=== PATIENT | female | born 1985 | race Caucasian/White ===

== ENCOUNTER 2018-10-07 13:45 | Outpatient (RCR) | payer OTHER, SELFPAY ==
--- NOTE | 2018-09-18 16:24 | PT.OIE ---
Current Diagnoses Other specified disorders of muscle (09/18/18) Stress incontinence (female) (male) (09/18/18) Provider Visit Care Team Role Provider Type Effie Gerber MD Attending Provider Physician Primary Care Provider Specialty: Family Practice Address: [address] [place] [address], [facility] Email: [email or web address] Physical Therapy Initial Evaluation PT-OP-A Visit Information Start: 09/18/18 09:05 Freq: Status: Active Protocol: Document 09/18/18 13:00 AMB (Rec: 09/18/18 15:05 AMB [email or web address]) Out-Patient Physical Therapy Visit Information Visit Information Visit Type Initial Evaluation Visit Start Time 13:00 Visit Stop Time 13:45 Total Visit Minutes 45 Visit Number 1 PT-OP-B Current Condition Start: 09/18/18 09:05 Freq: Status: Active Protocol: Document 09/18/18 13:00 AMB (Rec: 09/18/18 15:05 AMB [email or web address]) Current Condition History of Current Condition Onset Date 8 months ago Current Complaints vaginal bulge, stress incontinence, low back pain, abdominal pain History of Current Condition Lucero felt a bulge when she was sitting about 8 months ago. She has 4 children, the first via , the rest via vaginal delivery. She is 1 year and 1 month post and is breast feeding. She denies pain with intercourse but does have low back pain with extended lying down or standing, she also notices sharp electrical pain intermittently in her lower abdomen especially with exercise. She likes to do [employer] videos. She does have stress incontinence with exercise, but denies it with cough sneeze. Treatment Goals Patient/Caregiver Goals reduce prolapse Current Functional Impairments (Reported) Functional Limitations- ADL's leaking urine with exercise Personal Factors Other Personal Factors That May Effect back pain and abdominal pain Therapy/Recovery with exercise PT-OP-C Subjective Start: 09/18/18 09:05 Freq: Status: Active Protocol: Document 09/18/18 13:00 AMB (Rec: 09/18/18 15:05 AMB [email or web address]) Patient Questionnaires Pelvic Pain and Urgency/Frequency Patient Symptom Scale Pelvic Pain Score 10 PT-OP-I Pelvic Floor Start: 09/18/18 09:05 Freq: Status: Active Protocol: Document 09/18/18 13:00 AMB (Rec: 09/18/18 15:11 AMB [email or web address]) Pelvic Floor Assessment Urine Pelvic Floor Surgery No Urinary Symptoms Prolapse Falling Out Feeling/Heavy Pain Leakage Size Small Leakage Cause Exercise Voiding Frequency every 2 hours Nocturia 2 Bowel Other Bowel Symptoms previous constipation but changed diet and is now better Bowel Movement Frequency 1x/day Pelvic Clock Pelvic Clock Other no pain Prolapse Cystocele Grade 1 Perineal Descent Resting Absent Bearing Absent Contraction Ability Voluntary Contraction Absent Voluntary Relaxation Absent Manual Muscle Testing Left 0 Manual Muscle Testing Right 0 Manual Muscle Testing Anterior 0 Manual Muscle Testing Posterior 1 Comments Pelvic Floor Comments difficulty engaging pelvic floor, over uses abs, tends to bulge out with abs rather than engage TrA, small diastasis recti just superior to umbilicus less than 1 finger width. No tenderness over scar. PT-OP-Q Treatments Start: 09/18/18 09:05 Freq: Status: Active Protocol: Document 09/18/18 13:00 AMB (Rec: 09/18/18 15:11 AMB [email or web address]) Neuro Re-Education Treatment Other Activities 1 Details 10 second holds Comments with NMES PT-OP-T Assessment and Plan Start: 09/18/18 09:05 Freq: Status: Active Protocol: Document 09/18/18 13:00 AMB (Rec: 09/18/18 16:24 AMB [email or web address]) Physical Therapy Assessment Rehab Potential Rehabilitation Potential Good Evaluation Complexity Number of Personal Factors/Comorbidities 1-2 Clinical Presentation at Evaluation Stable Impairments Impairments Functional Activities Goals Three Impairment incontinence Straightedge Man Goal (LTG) Lucero will exercise without leaking urine. LTG Duration 10 weeks Two Impairment prolapse Short Term Goal (STG) Lucero will increase her pelvic floor strength to 3/5. STG Duration 4 weeks Straightedge Man Goal (LTG) Lucero will exercise without an increase in pelvic heaviness. LTG Duration 10 weeks One Impairment appropriate HEP Short Term Goal (STG) Lucero will be independent with a HEP that she can perform without abdominal pain. STG Duration 4 weeks Straightedge Man Goal (LTG) Lucero will be independent with a HEP that she can perform with appropriate pelvic floor contraction. LTG Duration 10 weeks Assessment Summary Assessment Lucero attends physical therapy with concerns over prolapse and pain and stress incontinence with exercise. It sounds like she is trying to start exercising to lose weight after and this is exacerbating her symptoms. While her prolapse was a grade 1 she had significant difficulty engaging her pelvic floor and tried to compensate with her abdominals. She did find NMES helpful. We will progress her as she is able to better recruit her pelvic floor and then further assess her pelvic floor's role with her abdominal pain and her back pain. Physical Therapy Plan Frequency and Duration Frequency of Treatment 1x/Week Duration of Treatment 10 weeks Plan of Care Start Date 09/18/18 Plan of Care End Date 11/27/18 Therapeutic Interventions Therapeutic Interventions Home Exercise Program Manual Therapy Neuromuscular Re-education Self-Care/Home Management Therapeutic Activities Therapeutic Exercises Modalities Biofeedback Electric Stimulation Next Visit Focus/Plan Next Note Type Treatment Note Next Visit Plan start with sEMG, instruct in appropriate pelvic floor and core stabilization
--- NOTE | 2018-09-18 16:25 | PT.OPPOC ---
Current Diagnoses Other specified disorders of muscle (09/18/18) Stress incontinence (female) (male) (09/18/18) Provider Visit Care Team Role Provider Type Effie Gerber MD Attending Provider Physician Primary Care Provider Specialty: Family Practice Address: [address] [place] [address], [id number] Email: [email or web address] Plan Of Care PT-OP-T Assessment and Plan Start: 09/18/18 09:05 Freq: Status: Active Protocol: Document 09/18/18 13:00 AMB (Rec: 09/18/18 16:24 AMB [email or web address]) Physical Therapy Assessment Rehab Potential Rehabilitation Potential Good Evaluation Complexity Number of Personal Factors/Comorbidities 1-2 Clinical Presentation at Evaluation Stable Impairments Impairments Functional Activities Goals Three Impairment incontinence Cost Control Supervisor Goal (LTG) Lucero will exercise without leaking urine. LTG Duration 10 weeks Two Impairment prolapse Short Term Goal (STG) Lucero will increase her pelvic floor strength to 3/5. STG Duration 4 weeks Snf Goal (LTG) Lucero will exercise without an increase in pelvic heaviness. LTG Duration 10 weeks One Impairment appropriate HEP Short Term Goal (STG) Lucero will be independent with a HEP that she can perform without abdominal pain. STG Duration 4 weeks Cost Control Supervisor Goal (LTG) Lucero will be independent with a HEP that she can perform with appropriate pelvic floor contraction. LTG Duration 10 weeks Assessment Summary Assessment Lucero attends physical therapy with concerns over prolapse and pain and stress incontinence with exercise. It sounds like she is trying to start exercising to lose weight after and this is exacerbating her symptoms. While her prolapse was a grade 1 she had significant difficulty engaging her pelvic floor and tried to compensate with her abdominals. She did find NMES helpful. We will progress her as she is able to better recurit her pelvic floor and then further assess her pelvic floor's role with her abdominal pain and her back pain. Physical Therapy Plan Frequency and Duration Frequency of Treatment 1x/Week Duration of Treatment 10 weeks Plan of Care Start Date 09/18/18 Plan of Care End Date 11/27/18 Therapeutic Interventions Therapeutic Interventions Home Exercise Program Manual Therapy Neuromuscular Re-education Self-Care/Home Management Therapeutic Activities Therapeutic Exercises Modalities Biofeedback Electric Stimulation Next Visit Focus/Plan Next Note Type Treatment Note Next Visit Plan start with sEMG, instruct in appropriate pelvic floor and core stabilization Plan of Care Dates Plan of Care Start Date 09/18/18 Plan of Care End Date 11/27/18 Please Sign and Return: I have reviewed this Plan of Care and certify that the skilled therapy services above are required to meet the patient?s needs. Physician Signature Date Printed Name and Credentials Clinical Instructor Signature Printed Name and Credentials
--- NOTE | 2018-09-23 15:56 | PT.OTN ---
Current Diagnoses Other specified disorders of muscle (09/23/18) Stress incontinence (female) (male) (09/23/18) Physical Therapy Treatment Note PT-OP-A Visit Information Start: 09/18/18 09:05 Freq: Status: Active Protocol: Document 09/23/18 14:30 AMB (Rec: 09/23/18 15:56 AMB [email or web address]) Out-Patient Physical Therapy Visit Information Visit Information Visit Type Initial Evaluation Visit Start Time 13:00 Visit Stop Time 13:45 Total Visit Minutes 45 Visit Number 2 PT-OP-B Current Condition Start: 09/18/18 09:05 Freq: Status: Active Protocol: Document 09/18/18 13:00 AMB (Rec: 09/18/18 15:05 AMB [email or web address]) Current Condition History of Current Condition Onset Date 8 months ago Current Complaints vaginal bulge, stress incontinence, low back pain, abdominal pain History of Current Condition Lucero felt a bulge when she was sitting about 8 months ago. She has 4 children, the first via , the rest via vaginal delivery. She is 1 year and 1 month post and is breast feeding. She denies pain with intercourse but does have low back pain with extended lying down or standing, she also notices sharp electrical pain intermittently in her lower abdomen especially with exercise. She likes to do [employer] videos. She does have stress incontinence with exercise, but denies it with cough sneeze. Treatment Goals Patient/Caregiver Goals reduce prolapse Current Functional Impairments (Reported) Functional Limitations- ADL's leaking urine with exercise Personal Factors Other Personal Factors That May Effect back pain and abdominal pain Therapy/Recovery with exercise PT-OP-C Subjective Start: 09/18/18 09:05 Freq: Status: Active Protocol: Document 09/23/18 14:30 AMB (Rec: 09/23/18 15:56 AMB [email or web address]) OP-PT Subjective Patient Comments Patient Comments Pt reports she thinks she is better able to find her pelvic floor. However finding time to lie down is challenging with her kids. PT-OP-I Pelvic Floor Start: 09/18/18 09:05 Freq: Status: Active Protocol: Document 09/18/18 13:00 AMB (Rec: 09/18/18 15:11 AMB [email or web address]) Pelvic Floor Assessment Urine Pelvic Floor Surgery No Urinary Symptoms Prolapse Falling Out Feeling/Heavy Pain Leakage Size Small Leakage Cause Exercise Voiding Frequency every 2 hours Nocturia 2 Bowel Other Bowel Symptoms previous constipation but changed diet and is now better Bowel Movement Frequency 1x/day Pelvic Clock Pelvic Clock Other no pain Prolapse Cystocele Grade 1 Perineal Descent Resting Absent Bearing Absent Contraction Ability Voluntary Contraction Absent Voluntary Relaxation Absent Manual Muscle Testing Left 0 Manual Muscle Testing Right 0 Manual Muscle Testing Anterior 0 Manual Muscle Testing Posterior 1 Comments Pelvic Floor Comments difficulty engaging pelvic floor, over uses abs, tends to bulge out with abs rather than engage TrA, small diastasis recti just superior to umbilicus less than 1 finger width. No tenderness over scar. PT-OP-Q Treatments Start: 09/18/18 09:05 Freq: Status: Active Protocol: Document 09/23/18 14:30 AMB (Rec: 09/23/18 15:56 AMB [email or web address]) Therapeutic Exercises Sitting Exercises 2 Sitting Exercise Name quick flicks and long holds Comments 10 1 Sitting Exercise Name roll out Resistance #2 t band Comments 10 Neuro Re-Education Treatment Other Activities 2 Details sEMG with quick flicks and long holds Self-Care/Home Management Treatment Education Other Education back pain and role of supported sitting, arch support for shoes PT-OP-T Assessment and Plan Start: 09/18/18 09:05 Freq: Status: Active Protocol: Document 09/23/18 14:30 AMB (Rec: 09/23/18 15:56 AMB [email or web address]) Physical Therapy Assessment Assessment Summary Assessment Lucero continues to note back pain. Difficulty coordinating breathing with pelvic floor today. Physical Therapy Plan Next Visit Focus/Plan Next Note Type Treatment Note Next Visit Plan start with sEMG, instruct in appropriate pelvic floor and core stabilization
--- NOTE | 2018-09-30 16:28 | PT.OTN ---
Current Diagnoses Other specified disorders of muscle (09/30/18) Stress incontinence (female) (male) (09/30/18) Physical Therapy Treatment Note PT-OP-A Visit Information Start: 09/18/18 09:05 Freq: Status: Active Protocol: Document 09/30/18 13:45 AMB (Rec: 09/30/18 16:28 AMB [email or web address]) Out-Patient Physical Therapy Visit Information Visit Information Visit Type Treatment Note Visit Start Time 13:00 Visit Stop Time 13:45 Total Visit Minutes 45 Visit Number 3 PT-OP-B Current Condition Start: 09/18/18 09:05 Freq: Status: Active Protocol: Document 09/18/18 13:00 AMB (Rec: 09/18/18 15:05 AMB [email or web address]) Current Condition History of Current Condition Onset Date 8 months ago Current Complaints vaginal bulge, stress incontinence, low back pain, abdominal pain History of Current Condition Lucero felt a bulge when she was sitting about 8 months ago. She has 4 children, the first via , the rest via vaginal delivery. She is 1 year and 1 month post and is breast feeding. She denies pain with intercourse but does have low back pain with extended lying down or standing, she also notices sharp electrical pain intermittently in her lower abdomen especially with exercise. She likes to do [employer] videos. She does have stress incontinence with exercise, but denies it with cough sneeze. Treatment Goals Patient/Caregiver Goals reduce prolapse Current Functional Impairments (Reported) Functional Limitations- ADL's leaking urine with exercise Personal Factors Other Personal Factors That May Effect back pain and abdominal pain Therapy/Recovery with exercise PT-OP-C Subjective Start: 09/18/18 09:05 Freq: Status: Active Protocol: Document 09/30/18 13:45 AMB (Rec: 09/30/18 16:28 AMB [email or web address]) OP-PT Subjective Patient Comments Patient Comments Pt feels like she is finding her pelvic floor better, her back pain continues to be a problem. PT-OP-I Pelvic Floor Start: 09/18/18 09:05 Freq: Status: Active Protocol: Document 09/18/18 13:00 AMB (Rec: 09/18/18 15:11 AMB [email or web address]) Pelvic Floor Assessment Urine Pelvic Floor Surgery No Urinary Symptoms Prolapse Falling Out Feeling/Heavy Pain Leakage Size Small Leakage Cause Exercise Voiding Frequency every 2 hours Nocturia 2 Bowel Other Bowel Symptoms previous constipation but changed diet and is now better Bowel Movement Frequency 1x/day Pelvic Clock Pelvic Clock Other no pain Prolapse Cystocele Grade 1 Perineal Descent Resting Absent Bearing Absent Contraction Ability Voluntary Contraction Absent Voluntary Relaxation Absent Manual Muscle Testing Left 0 Manual Muscle Testing Right 0 Manual Muscle Testing Anterior 0 Manual Muscle Testing Posterior 1 Comments Pelvic Floor Comments difficulty engaging pelvic floor, over uses abs, tends to bulge out with abs rather than engage TrA, small diastasis recti just superior to umbilicus less than 1 finger width. No tenderness over scar. PT-OP-Q Treatments Start: 09/18/18 09:05 Freq: Status: Active Protocol: Document 09/30/18 13:45 AMB (Rec: 09/30/18 16:28 AMB [email or web address]) Therapeutic Exercises Supine Exercises 2 Supine Exercise Name supine table top with eccentric lower Reps/Minutes 10 Comments with pelvic floor and TrA 1 Supine Exercise Name supine march with TrA and pelvic floor Reps/Minutes 10 Sitting Exercises 2 Sitting Exercise Name quick flicks and long holds Comments 10 1 Sitting Exercise Name roll out Resistance #2 t band Comments 10 Standing Exercises 1 Standing Exercise Name pelvic tilt with TA/pelvic floor Other Exercises 3 Other Exercise Name jorge pose Reps/Minutes 10 2 Other Exercise Name cat/cow Reps/Minutes 10 Comments with TrA pelvic floor 1 Other Exercise Name quadruped UE flex Reps/Minutes 10 Comments with TrA and pelvic floor PT-OP-T Assessment and Plan Start: 09/18/18 09:05 Freq: Status: Active Protocol: Document 09/30/18 13:45 AMB (Rec: 09/30/18 16:28 AMB [email or web address]) Physical Therapy Assessment Assessment Summary Assessment Lucero was better with breathing coordination today, but continues to have difficulty not letting abdominal muscles take over. She can feel the prolapse at the end of the day but not in the morning. Physical Therapy Plan Next Visit Focus/Plan Next Note Type Treatment Note Next Visit Plan start with sEMG, instruct in appropriate pelvic floor and core stabilization
--- NOTE | 2018-10-07 16:05 | PT.OTN ---
Current Diagnoses Other specified disorders of muscle (10/07/18) Stress incontinence (female) (male) (10/07/18) Physical Therapy Treatment Note PT-OP-A Visit Information Start: 09/18/18 09:05 Freq: Status: Active Protocol: Document 10/07/18 13:45 AMB (Rec: 10/07/18 15:36 AMB [email or web address]) Out-Patient Physical Therapy Visit Information Visit Information Visit Type Treatment Note Visit Start Time 13:00 Visit Stop Time 13:45 Total Visit Minutes 45 Visit Number 4 PT-OP-B Current Condition Start: 09/18/18 09:05 Freq: Status: Active Protocol: Document 09/18/18 13:00 AMB (Rec: 09/18/18 15:05 AMB [email or web address]) Current Condition History of Current Condition Onset Date 8 months ago Current Complaints vaginal bulge, stress incontinence, low back pain, abdominal pain History of Current Condition Lucero felt a bulge when she was sitting about 8 months ago. She has 4 children, the first via , the rest via vaginal delivery. She is 1 year and 1 month post and is breast feeding. She denies pain with intercourse but does have low back pain with extended lying down or standing, she also notices sharp electrical pain intermittently in her lower abdomen especially with exercise. She likes to do [email or web address] videos. She does have stress incontinence with exercise, but denies it with cough sneeze. Treatment Goals Patient/Caregiver Goals reduce prolapse Current Functional Impairments (Reported) Functional Limitations- ADL's leaking urine with exercise Personal Factors Other Personal Factors That May Effect back pain and abdominal pain Therapy/Recovery with exercise PT-OP-C Subjective Start: 09/18/18 09:05 Freq: Status: Active Protocol: Document 10/07/18 13:45 AMB (Rec: 10/07/18 15:36 AMB [email or web address]) OP-PT Subjective Patient Comments Patient Comments Pt continues to have thoracic back pain, she feels like she has found her pelvic floor, but continues to feel the prolapse at the end of the day. She is concerned about childcare, and her parents are going to be in town in a month, so she is hoping to cancel her last appointment and reschedule when her parents are in town and they can help with childcare. PT-OP-I Pelvic Floor Start: 09/18/18 09:05 Freq: Status: Active Protocol: Document 09/18/18 13:00 AMB (Rec: 09/18/18 15:11 AMB [email or web address]) Pelvic Floor Assessment Urine Pelvic Floor Surgery No Urinary Symptoms Prolapse Falling Out Feeling/Heavy Pain Leakage Size Small Leakage Cause Exercise Voiding Frequency every 2 hours Nocturia 2 Bowel Other Bowel Symptoms previous constipation but changed diet and is now better Bowel Movement Frequency 1x/day Pelvic Clock Pelvic Clock Other no pain Prolapse Cystocele Grade 1 Perineal Descent Resting Absent Bearing Absent Contraction Ability Voluntary Contraction Absent Voluntary Relaxation Absent Manual Muscle Testing Left 0 Manual Muscle Testing Right 0 Manual Muscle Testing Anterior 0 Manual Muscle Testing Posterior 1 Comments Pelvic Floor Comments difficulty engaging pelvic floor, over uses abs, tends to bulge out with abs rather than engage TrA, small diastasis recti just superior to umbilicus less than 1 finger width. No tenderness over scar. PT-OP-Q Treatments Start: 09/18/18 09:05 Freq: Status: Active Protocol: Document 10/07/18 13:45 AMB (Rec: 10/08/18 07:05 AMB [email or web address]) Therapeutic Exercises Supine Exercises 1 Supine Exercise Name supine march with TrA and pelvic floor Reps/Minutes 10 Standing Exercises 3 Standing Exercise Name rows Resistance #3 t band Comments with PF contract 2 Standing Exercise Name squat with pelvic floor contract Reps/Minutes 10 1 Standing Exercise Name pelvic tilt with TA/pelvic floor Other Exercises 4 Other Exercise Name thread the needle Reps/Minutes 10 3 Other Exercise Name jorge pose Reps/Minutes 10 2 Other Exercise Name cat/cow Reps/Minutes 10 Comments with TrA pelvic floor Manual Therapy Treatment Soft Tissue Mobilization 1 Body Location ILU massage for constipation PT-OP-T Assessment and Plan Start: 09/18/18 09:05 Freq: Status: Active Protocol: Document 10/07/18 13:45 AMB (Rec: 10/07/18 15:36 AMB [email or web address]) Physical Therapy Assessment Assessment Summary Assessment Lucero continues to overuse abdominals and try to do substatially more challenging exercises than her pelvic floor can tolerate, and this may be affecting her back pain . She was also noting lower right sharp intermittent pain and was instructed in ILU massage for that. Physical Therapy Plan Next Visit Focus/Plan Next Note Type Treatment Note Next Visit Plan start with sEMG, instruct in appropriate pelvic floor and core stabilization
--- NOTE | 2018-12-25 09:37 | PT.OPDS ---
Current Diagnoses Other specified disorders of muscle (10/07/18) Stress incontinence (female) (male) (10/07/18) Visit Care Team Role Provider Type Effie Gerber MD Attending Provider Physician Primary Care Provider Specialty: [facility] Address: [address] [place] [address], [facility] [place], [address] Email: [email or web address] Visit Number Visit Number 4 Discharge Summary PT-OP-B Current Condition Start: 09/18/18 09:05 Freq: Status: Active Protocol: Document 09/18/18 13:00 AMB (Rec: 09/18/18 15:05 AMB [email or web address]) Current Condition History of Current Condition Onset Date 8 months ago Current Complaints vaginal bulge, stress incontinence, low back pain, abdominal pain History of Current Condition Lucero felt a bulge when she was sitting about 8 months ago. She has 4 children, the first via , the rest via vaginal delivery. She is 1 year and 1 month post and is breast feeding. She denies pain with intercourse but does have low back pain with extended lying down or standing, she also notices sharp electrical pain intermittently in her lower abdomen especially with exercise. She likes to do [employer] videos. She does have stress incontinence with exercise, but denies it with cough sneeze. Treatment Goals Patient/Caregiver Goals reduce prolapse Current Functional Impairments (Reported) Functional Limitations- ADL's leaking urine with exercise Personal Factors Other Personal Factors That May Effect back pain and abdominal pain Therapy/Recovery with exercise PT-OP-C Subjective Start: 09/18/18 09:05 Freq: Status: Active Protocol: Document 10/07/18 13:45 AMB (Rec: 10/07/18 15:36 AMB [email or web address]) OP-PT Subjective Patient Comments Patient Comments Pt continues to have thoracic back pain, she feels like she has found her pelvic floor, but continues to feel the prolapse at the end of the day. She is concerned about childcare, and her parents are going to be in town in a month, so she is hoping to cancel her last appointment and reschedule when her parents are in town and they can help with childcare. PT-OP-I Pelvic Floor Start: 09/18/18 09:05 Freq: Status: Active Protocol: Document 09/18/18 13:00 AMB (Rec: 09/18/18 15:11 AMB [email or web address]) Pelvic Floor Assessment Urine Pelvic Floor Surgery No Urinary Symptoms Prolapse,Falling Out Feeling/ Heavy,Pain Leakage Size Small Leakage Cause Exercise Voiding Frequency every 2 hours Nocturia 2 Bowel Other Bowel Symptoms previous constipation but changed diet and is now better Bowel Movement Frequency 1x/day Pelvic Clock Pelvic Clock Other no pain Prolapse Cystocele Grade 1 Perineal Descent Resting Absent Bearing Absent Contraction Ability Voluntary Contraction Absent Voluntary Relaxation Absent Manual Muscle Testing Left 0 Manual Muscle Testing Right 0 Manual Muscle Testing Anterior 0 Manual Muscle Testing Posterior 1 Comments Pelvic Floor Comments difficulty engaging pelvic floor, over uses abs, tends to bulge out with abs rather than engage TrA, small diastasis recti just superior to umbilicus less than 1 finger width. No tenderness over scar. PT-OP-T Assessment and Plan Start: 09/18/18 09:05 Freq: Status: Active Protocol: Document 12/25/18 09:31 AMB (Rec: 12/25/18 09:37 AMB [email or web address]) Physical Therapy Assessment Goals Three Impairment incontinence Mcfp Goal (LTG) Lucero will exercise without leaking urine. LTG Duration 10 weeks Two Impairment prolapse Short Term Goal (STG) Lucero will increase her pelvic floor strength to 3/5. STG Duration 4 weeks Mcfp Goal (LTG) Lucero will exercise without an increase in pelvic heaviness. LTG Duration 10 weeks One Impairment appropriate HEP Short Term Goal (STG) Lucero will be independent with a HEP that she can perform without abdominal pain. STG Duration 4 weeks Acid Cutter Goal (LTG) Lucero will be independent with a HEP that she can perform with appropriate pelvic floor contraction. LTG Duration 10 weeks Assessment Summary Assessment Lucero attended 4 visits of physical therapy in August and September. She then stopped coming to PT due to childcare issues, with the hope of returning. Called the pt recently and she stated that her symptoms have been improving and she has been continuing to do her exercises independently and feels she is ready for discharge at this time. Physical Therapy Plan Discharge Physical Therapy Discharge Reasons Patient Request
== END 2018-12-31 12:43 ==
LOC: PHYS 13:45
PROVIDERS: PCP Family Medicine; Visit Provider Family Medicine
DX: M62.89 Other specified disorders of muscle (principal); N39.3 Stress incontinence (female) (male)
CPT/HCPCS: 97110; 97112; 97161

== ENCOUNTER → 2020-04-05 11:44 | Outpatient (CLI) | payer OTHER, SELFPAY ==
[2020-04-05 12:48] LABS: Add Manual Diff / Slide Review NO; Basophils Absolute Auto 0 /uL (0-100); Basophils Percent Auto 0.5 % (0-2); Eosinophils Absolute Auto 0 /uL (0-450); Eosinophils Percent Auto 0.8 % (2-4); Hematocrit 37.5 % (36-46); Hemoglobin 12.2 g/dL (12.0-16.0); Lymphocytes Absolute Auto 1500 /uL (1100-4500); Lymphocytes Percent Auto 38.1 % (25-40); Mean Corpuscular HGB Conc 32.6 % (30-36); Mean Corpuscular Hemoglobin 28.6 PG (26-34); Mean Corpuscular Volume 87.6 fL (80-100); Monocytes Absolute Auto 300 /uL (0-900); Monocytes Percent Auto 7.8 % (3-14); Neutrophils Absolute Auto 2100 /uL (1500-7000); Neutrophils Percent Auto 52.8 % (50-75); Platelet Count 243 X10^3/uL (150-400); Red Blood Cell Count 4.28 X10^6/uL (4.0-5.2); Red Cell Distribution Width 13.3 % (11.6-14.8)
[2020-04-05 13:11] LABS: HCG Quantitative /Beta subunit < 2.4 mIU/mL
[2020-04-05 13:27] LABS: Thyroid Stimulating Hormone 1.17 uIU/mL (0.47-4.68)
== END ==
PROVIDERS: PCP Family Medicine; Referring Provider Family Medicine; Visit Provider Family Medicine
DX: N93.9 Abnormal uterine and vaginal bleeding, unspecified (principal)
CPT/HCPCS: 36415; 84443; 84702; 85025

== ENCOUNTER → 2020-04-10 12:15 | Outpatient (CLI) | payer OTHER, SELFPAY ==
--- NOTE | 2020-04-10 12:16 | DI.US.S_ITS ---
PROCEDURE: US PELVIC COMPLETE INDICATIONS: DUB TECHNIQUE: Real-time scanning was performed of the pelvic organs, with image documentation. Additional endovaginal scanning was necessary due to incomplete visualization of the adnexal and endometrial structures by transabdominal scanning. COMPARISON: None. FINDINGS: Uterus: Uterus is normal in size at 11.3 x 5.5 x 8.4 cm. The endometrium measures 11.6 mm in combined thickness. Moderate endometrial fluid present. Ovaries: Ovaries within normal limits bilaterally measuring 3.4 x 2.7 x 3.5 cm on the right and 3.5 x 2.1 x 2.8 cm on the left. Simple, unilocular dominant right follicular cyst present measuring 2.1 cm. Other: No pathologic free abdominal or pelvic fluid. IMPRESSION: Moderate endometrial fluid; otherwise normal appearance of the endometrial complex. Recommend short-term follow-up pelvic ultrasound in 6-12 weeks to assess for interval resolution. Dictated by: Uday WIN Interpreted: Charlee Sanchez MD on 04/10/2020 at 13:39 Approved by: Charlee Sanchez M.D. on 04/10/2020 at 15:08
== END ==
PROVIDERS: PCP Family Medicine; Referring Provider Family Medicine; Visit Provider Family Medicine
DX: N93.8 Other specified abnormal uterine and vaginal bleeding (principal); N83.291 Other ovarian cyst, right side
CPT/HCPCS: 76830; 76856

== ENCOUNTER → 2020-05-23 10:26 | Outpatient (CLI) | payer OTHER, SELFPAY ==
--- NOTE | 2020-05-23 10:28 | DI.US.S_ITS ---
PROCEDURE: US PELVIC COMPLETE INDICATIONS: FOLLOW-UP OVARIAN CYST TECHNIQUE: Real-time scanning was performed of the pelvic organs, with image documentation. Additional endovaginal scanning was necessary due to incomplete visualization of the adnexal and endometrial structures by transabdominal scanning. COMPARISON: [facility], US, US PELVIC COMPLETE, 04/10/2020, 12:37. FINDINGS: Uterus: Uterus is normal in size at 7.9 x 4.8 by 7.5 cm. The endometrium measures 11 mm in combined thickness. Ovaries: The right ovary measures 4.2 x 1.7 x 2.2 cm. The left ovary measures 5.1 x 3.1 x 2.9 cm and demonstrates a complex cyst without abnormal vascularity that measures up to 2.3 cm. The ovaries otherwise have a normal sonographic appearance. No adnexal masses are seen. Other: No pathologic free abdominal or pelvic fluid. IMPRESSION: Left ovarian complex cyst noted, which is likely related to resolving hemorrhagic cyst. At clinical discretion, a followup pelvic ultrasound could be considered in 6 weeks to assure resolution/ improvement. Dictated by: Steve Child M.D. on 05/24/2020 at 10:43 Approved by: Steve Child M.D. on 05/24/2020 at 10:44
== END ==
PROVIDERS: PCP Family Medicine; Referring Provider Family Medicine; Visit Provider Family Medicine
DX: N93.9 Abnormal uterine and vaginal bleeding, unspecified (principal); N83.292 Other ovarian cyst, left side
CPT/HCPCS: 76830; 76856

== ENCOUNTER → 2021-05-21 12:52 | Outpatient (CLI) | payer OTHER, SELFPAY ==
[2021-05-21 14:04] LABS: HCG Quantitative /Beta subunit < 2.4 mIU/mL
== END ==
PROVIDERS: PCP Family Medicine; Referring Provider Family Medicine; Visit Provider Family Medicine
DX: O20.0 Threatened abortion (principal)
CPT/HCPCS: 36415; 84702

== ENCOUNTER → 2021-06-08 10:31 | Outpatient (CLI) | payer OTHER, SELFPAY ==
[2021-06-08 12:02] LABS: HCG Quantitative /Beta subunit < 2.4 mIU/mL
== END ==
PROVIDERS: PCP Family Medicine; Referring Provider Family Medicine; Visit Provider Family Medicine
DX: O20.0 Threatened abortion (principal)
CPT/HCPCS: 36415; 84702

== ENCOUNTER → 2022-08-30 08:49 | Outpatient (CLI) | payer OTHER, SELFPAY ==
--- NOTE | 2022-08-30 | DI.US.S_ITS ---
PROCEDURE: US OB >= 14 WEEKS FETUS INDICATIONS: ANATOMY SCAN OUTSIDE/PRIOR DATING DATA: Last menstrual period (LMP): 04/14/2022. LMP-based estimated date of delivery (DURAN): 01/19/2023. 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 Images from that exam are not available for comparison. Estimated date of delivery (DURAN) from first dating scan: 01/13/2023. TECHNIQUE: Real-time scanning was performed of the fetus, with image documentation and biometric measurements. Endovaginal scanning: Not performed COMPARISON: None. FINDINGS: General: A single living intrauterine gestation is present. Presentation: Vertex. Placenta: Placental position is posterior , without previa. Amniotic fluid index: 14.9 cm, normal range is 5-24 cm. Single deepest vertical pocket is 5.1 cm. heart rate: 152 beats per minute. Maternal cervical canal: 4.2 cm long. Normal lower limit is 2.5 cm. biometrics: Biparietal diameter: 4.8 cm 20 weeks 4 days Head circumference: 17.9 cm 20 weeks 3 days Abdominal circumference: 15.9 cm 21 weeks 0 days Femur length: 3.3 cm 20 weeks 2 days estimated gestational age: 19 weeks 5 days Composite gestational age from present scan: 20 weeks 4 days Estimated weight and percentile: 360 g, 91st percentile Anatomic survey: Neuro: Ventricles are non-dilated at less than 10 mm. Cisterna magna is normal at 3-11 mm. Cerebellum is normal in size and morphology. Nuchal skin fold: Normal at less than 6 mm between 14-21 weeks gestational age. Face: Nose and lips, facial profile are normal. Spine: No evidence for spina bifida. Heart: 4-chambered heart is present, with normal ventricular outflow tracts. Diaphragm: Diaphragm is intact. Stomach: Left-sided stomach is present. Kidneys: Right kidney pelviectasis, renal pelvis diameter of 4 mm. No left pelviectasis. Cord: 3-vessel cord has orthotopic insertion. Bladder: Normal in size. Extremities: All 4 extremities identified. IMPRESSION: 1. Single living intrauterine in vertex presentation. 2. Estimated weight at the 91st percentile. 3. Right pelviectasis present. Follow-up third-trimester ultrasound recommended. 4. Remainder of the 2nd trimester anatomy survey is within normal limits. We strive to produce accurate, complete, and clear reports of imaging services. To assist us in improving patient care, this report was composed using standard report templates and voice recognition software. Therefore, it may contain abnormal punctuation, insertions and/or omissions. Occasional wrong-word or sound-alike substitutions may occur. Though we review the report and make efforts to correct it, we do recommend that the report be read carefully in proper context to recognize any text inaccuracies. Dictated by: Gio Lambert M.D. on 08/30/2022 at 16:56 Approved by: Gio Lambert M.D. on 08/30/2022 at 17:02
== END ==
PROVIDERS: PCP Family Medicine; Referring Provider Advanced Practice Midwife; Visit Provider Advanced Practice Midwife
DX: O09.92 Supervision of high risk pregnancy, unspecified, second trimester (principal); O34.211 Maternal care for low transverse scar from previous cesarean delivery; Z3A.20 20 weeks gestation of pregnancy
CPT/HCPCS: 76811

== ENCOUNTER → 2022-11-18 09:14 | Outpatient (CLI) | payer OTHER, SELFPAY ==
--- NOTE | 2022-11-18 | DI.US.S_ITS ---
PROCEDURE: US OB FOLLOW UP INDICATIONS: RENAL PELVIECTASIS OUTSIDE/PRIOR DATING DATA: Last menstrual period (LMP): 04/04/2022. LMP-based estimated date of delivery (DURAN): 01/19/2023. First dating scan (date and location): 08/30/2022. Estimated date of delivery (DURAN) from first dating scan: 01/13/2023. The calculations are made using the clinical DURAN of 01/19/2023. TECHNIQUE: Real-time scanning was performed of the fetus, with image documentation. Endovaginal scanning: Not performed COMPARISON: None. FINDINGS: A single living intrauterine gestation is present. Presentation: Breech. Placenta: Placental position is posterior, without previa. Amniotic fluid index: 21.1 cm, normal range is 5-24 cm. Single deepest vertical pocket is 8.6 cm. heart rate: 157 beats per minute. Maternal cervical canal: 5 cm long. Normal lower limit is 2.5 cm. Clinically estimated gestational age: 31 weeks 1 day Other: The right renal pelvis measures 3.8 mm. The left renal pelvis measures 3.2 mm. Both are within normal limits for age. IMPRESSION: Single living intrauterine at 31 weeks 1 day, DURAN of 01/19/2023. The renal pelvices measures within normal limits for age. Dictated by: Troy Mckeon M.D. on 11/18/2022 at 11:36 Approved by: Troy Mckeon M.D. on 11/18/2022 at 11:37
== END ==
PROVIDERS: PCP Family Medicine; Referring Provider Nurse Practitioner Obstetrics & Gynecology; Visit Provider Nurse Practitioner Obstetrics & Gynecology
DX: O09.93 Supervision of high risk pregnancy, unspecified, third trimester (principal); O28.3 Abnormal ultrasonic finding on antenatal screening of mother; O34.33 Maternal care for cervical incompetence, third trimester; Z3A.31 31 weeks gestation of pregnancy
CPT/HCPCS: 76816

== ENCOUNTER 2023-01-18 07:48 | Outpatient (CLI) | payer OTHER, SELFPAY ==
--- NOTE | 2023-01-18 08:16 | P.TNLD_ITS ---
Visit Information Visit Information Date of evaluation: 01/18/23 Primary OB Provider: Marya Orozco On-call OB Provider: Marya Orozco Reason for Evaluation: Yes non-stress test non-stress test reason: decreased movement Comments/Additional reasons for admission: Lucero is a 37 year old at 39w6d by LMP and confirmed by 9 week ultrasound. Her , Evans, called today concerned about decreased movement despite efforts to get baby to move. Definitely felt baby move last night. Lucero was tearful when she arrived out of worry. Very relieved to hear baby's heartbeat. Lucero has received care with [facility]; has had an uneventful with normal labs and GBS negative. History of section x 1 and 3 VBACs. Vital Signs Vital Signs: BP 120/78 HR 73 Temp 36.1 C SP O2 99% PFS Medical History (Updated 01/18/23 @ 08:59 by Marya Orozco CNM, STEVEN) History of Gestational hypertension Surgical History (Updated 01/18/23 @ 08:54 by Marya Orozco CNM, STEVEN) History of section (04/01/17) Family History (Updated 01/18/23 @ 08:54 by Marya Orozco CNM, STEVEN) Mother Age: 64 Hypertension Diabetes mellitus Social History Smoking Status: Never smoker Review of Systems Review of Systems Narrative: Negative except as mentioned in HPI Exam Resp Effort & Inspection: normal respiratory effort and able to speak in complete sentences External Female Exam: normal external appearance Manual OB Exam: dilated 3, effaced 50%, station -2 and other (posterior, soft) Presentation: vertex (by cervical exam) Estimated Weight (lbs): 9 Skin General: no rashes or lesions noted Neuro General: patient alert, patient awake and patient oriented x3 Psych Appearance: grossly normal and well kempt Mental Status: mental status grossly normal Mood: congruent mood and anxious mood Affect: anxious affect Attitude: cooperative Evaluation Evaluation Baseline heart rate: 125 Variability: Moderate (11-25) monitor accelerations: Present Monitor Decelerations: Absent Contraction Frequency (minutes): 9 (irregular) Uterine Contraction Intensity: Mild Category of Tracing: Reactive Cervical dilation (cm): 3 Cervical effacement (%): 50 station: 0 Comments: Denies loss of fluid. Diagnosis, Plan/Disposition Final Diagnosis (1) History of section: Status: None Problem details: 10/2008 with first (2) Supervision of normal in third trimester: Status: Acute (3) Advanced maternal age (AMA) in : Status: Acute (4) Decreased movement: Status: Acute (5) NST (non-stress test) reactive: Status: Acute Plan/Disposition Plan: NST. Discharge home. IOL scheduled for 01/21/23 at 0730.
== END 2023-01-18 08:41 | disposition home or self-care (01) ==
LOC: OB 01-23 16:00
PROVIDERS: PCP Nurse Practitioner Family; Referring Provider Advanced Practice Midwife; Visit Provider Advanced Practice Midwife
DX: O36.8130 Decreased fetal movements, third trimester, not applicable or unspecified (principal); O09.523 Supervision of elderly multigravida, third trimester; Z3A.39 39 weeks gestation of pregnancy
CPT/HCPCS: 59025; G0378; G0379

== ENCOUNTER 2023-01-21 07:18 | Inpatient (IN) | payer OTHER, SELFPAY ==
--- NOTE | 2023-01-21 08:08 | P.PCN_ITS ---
Procedures Date/Time Date of procedure: 01/21/23 Time of procedure: 08:00 General Procedure description: 37YO at 40 weeks 2 days by LMP concordant with 9 week ultrasound here for elective IOL with a history of x1, followed by x3. Patient has planned her trial of labor after at [facility] despite notification of the hospital's policy for no VBACs. [facility] administration decided that a planed IOL should be scheduled to reduce her risk
--- NOTE | 2023-01-21 08:16 | PM.OBHP.1 ---
OB HPI Date/Time Date of admission: 01/21/23 Date Patient Seen: 01/21/23 Time Patient Seen: 08:17 History of Present Condition Chief complaint: Induction : 7 Para: 4 Estimated Date of Delivery: 01/19/23 Estimated Gestational Age (weeks): 40.2 Narrative: Lucero Clayton is a 37 year old female at 40 weeks 2 days by LMP concordant with 9 week ultrasound here for elective IOL with a history of x1, followed by x3. She has a history of rapid labors, lives 2 [address] from [facility], prefers an epidural and does not think she can make it to [place] in time for her next trial of labor after (TOLAC). Patient has planned her TOLAC at [facility] despite notification of the hospital's policy for no VBACs. [facility] administration decided that a planned IOL at a time of full resources should be scheduled as the safest course for the patient and she agreed to this. Patient has had uncomplicated care with CNMs. She is planning an epidural. She is declining GBS prophylaxis and prefers pitocin only as a last resort. She is accompanied by her supportive who opposes medical interventions, antibiotics and epidurals. Indications Indication for induction OB: maternal discomfort and history of rapid labor History of Present care: good care, initiated at week # (9), number of visits (10) and pounds weight gain (53) Dating criteria: LMP confirmed by 1st trimester US Ultrasounds: normal mid trimester US Obstetrical complications: none Medical complications: none Preadmission Labs Blood type: O (+) positive -: Antibody screen: negative, GBS status: positive, HBsAG: negative and RPR/VDLR: negative -: Chlamydia screen: not detected and Gonorrhea screen: not detected -: Rubella: immune and Varicella: immune HCT: 37.4 HCAB: negative 1 hr GTT: 127 Narrative: Evaluation Evaluation Baseline heart rate: 130 Variability: Moderate (11-25) monitor accelerations: Present Monitor Decelerations: Variable Contraction Frequency (minutes): 4 Uterine Contraction Intensity: Mild Category of Tracing: Reactive Dilation (cm): 3 Effacement (%): 50 Dilation: 3-4 cm Effacement: 40-50% station: -3 Position of cervix: posterior Consistency: medium Jenkins score: 4 Comments: Burleson balloon placed manually and inflated with 60mL normal saline. Patient tolerated this well. [facility] Medical History History of Gestational hypertension Surgical History History of section (04/01/17) Family History Mother Age: 64 Hypertension Diabetes mellitus Social History Smoking Status: Never smoker Meds Home Medications and Allergies Home Medications Medication Instructions Recorded Confirmed Type vitamin-ferrous fumarate 1 cap PO QDAY ##0 02/04/17 History 65 mg iron-folic acid 1 mg capsule (Mynatal) hydrocortisone 2.5 % lotion 1 delgado TP BID #118 mL 04/01/17 Rx Allergies Allergy/AdvReac Type Severity Reaction Status Date / Time No Known Allergies Allergy Uncoded 07/29/18 11:06 Review of Systems Review of Systems ROS: Yes All systems reviewed with the patient and are negative except as otherwise documented OB Exam Vital signs Blood Pressure: 134/79 Pulse Rate: 89 Temperature: 97.9 F Resp Effort & Inspection: normal respiratory effort and able to speak in complete sentences Auscultation: clear to auscultation bilaterally Cardio Rate: regular rate Rhythm: regular rhythm Heart Sounds: S1 normal and S2 normal Objective Labs 01/21/23 08:10 Assessment and Plan Assessment and Plan Assessment and Plan narrative: A: Term Multipara Elective IOL TOLAC GBS prophylaxis indicated Cervical ripening indicated Reactive NST P: Counseled patient on options for IOL and she desires the least medical intervention possible: Burleson balloon, then AROM, if possible. Strongly recommend antibiotics for GBS prophylaxis 3 hours prior to AROM, but patient continues to decline. Admit, routine orders. Patient may walk and return in [address] IV and administer epidural upon her return. Continuous EFM at that time. Will reassess CE and AROM, if favorable after epidural placement. Anesthesia notified. , OBGyn notified of patient admission status and plan of care and has been consulted throughout the . Will notify OR crew upon her return.
[2023-01-21 08:40] LABS: Add Manual Diff / Slide Review NO; Basophils Absolute Auto 0 /uL (0-100); Basophils Percent Auto 0.5 % (0-2); Eosinophils Absolute Auto 0 /uL (0-450); Eosinophils Percent Auto 0.6 % (2-4); Hematocrit 34.9 % (36-46); Hemoglobin 11.5 g/dL (12.0-16.0); Lymphocytes Absolute Auto 1500 /uL (1100-4500); Lymphocytes Percent Auto 25.1 % (25-40); Mean Corpuscular Hemoglobin 27.5 PG (26-34); Mean Corpuscular Volume 83.6 fL (80-100); Monocytes Absolute Auto 500 /uL (0-900); Neutrophils Absolute Auto 3900 /uL (1500-7000); Neutrophils Percent Auto 64.8 % (50-75); Platelet Count 223 X10^3/uL (150-400); Red Blood Cell Count 4.17 X10^6/uL (4.0-5.2); Red Cell Distribution Width 14.2 % (11.6-14.8)
[2023-01-21 08:44] VITALS: BP 134/79; PULSE 89; TEMP 36.6
[2023-01-21] MEDS: LACTATED RINGERS 1,000 ML 100 ML IV ×2 (12:00→13:56)
--- NOTE | 2023-01-21 14:23 | PM.OBPNLAB ---
Date/Time Date Patient Seen: 01/21/23 Time Patient Seen: 13:54 Pain Control Pain control: epidural Comments: Burleson balloon came out at 1050 and patient returned to unit at 1200 complaining of continued mild contractions. CE was 5/60/-3 and once informed that AROM was possible, patient requested an epidural. Anesthesia was in the OR at that time so we waited for epidural to be placed. Once placed and she was comfortable, CE as repeated (below). VS: BP 125/85, HR 96bpm, T 36.4C Temporal Pelvic Exam Dilation (cm): 6 Effacement (%): 75 station: -3 Amniotic membrane status: Ruptured (AROM, copious, clear) Contractions Contraction frequency (min): 5 Contraction duration (min): 1 Contraction intensity: Mild Status status: Category l Heart Rate Baseline: 150 Monitor Accelerations: Present Monitor Decelerations: Absent Monitor Variability: Moderate Assessment and Plan Assessment: induction ongoing Plan: continuous present management Comments: OR, anesthesia and OBGyn aware of patient status. Will consider low dose pitocin if no progress in 4 hours. Reassess in 4 hours or sooner, PRN.
--- NOTE | 2023-01-21 17:03 | PM.OBPNLAB ---
Date/Time Date Patient Seen: 01/21/23 Time Patient Seen: 17:03 Pain Control Pain control: epidural Comments: Remains comfortable with an epidural. Has completed 2 sessions of pumping x 20 minutes to achieve regular contractions. Continues to decline pitocin. Pelvic Exam Dilation (cm): 7 Effacement (%): 75 station: -3 Amniotic membrane status: Leaking (clear) Comments: Burleson balloon placed, draining clear, yellow urine. Contractions Contraction frequency (min): 3 Contraction duration (min): 1 Contraction pattern: Regular Contraction intensity: Mild Status status: Category l Heart Rate Baseline: 115 Monitor Accelerations: Present Monitor Decelerations: Absent Monitor Variability: Moderate Assessment and Plan Assessment: active labor Plan: continuous present management Comments: Updated OR crew on progress. Anticipate NSVB.
[2023-01-21 17:41] VITALS: BP 115/57
--- NOTE | 2023-01-21 18:52 | PM.ANES.PR ---
Operative Date/Time/Diagnoses Date of procedure: 01/21/23 Time of procedure: 13:20 Pre-op diagnosis: Labor pain Post-op diagnosis: same Note Patient is a requesting labor epidural
--- NOTE | 2023-01-21 18:53 | PM.AN.REGBLK ---
Regional Block Pre-procedure Procedure: Continuous Lumbar Epidural for L&D Attending OB provider: Di Black PMH/ROS narrative: Patient is a requesting labor epidural Hx: No personal or family history of anesthesia problems. Exam narrative: Mallampati: 2, good neck ROM ASA Class: II Labs: Hct 34.9 % (36-46) L 01/21/23 08:10 Plt Count 223 X10^3/uL (150-400) 01/21/23 08:10 Medications: Current Medications Generic Name Dose Route Start Last Admin Trade Name Freq PRN Reason Stop Dose Admin Calcium Carbonate 1,000 mg 01/21/23 13:41 Calcium Carbonate 500 Mg Tab PO Q4HR PRN Dyspepsia Carboprost Tromethamine 250 mcg 01/21/23 13:41 Carboprost 250 Mcg/Ml Ampul IM Q90M PRN Bleeding Diphenhydramine HCl 25 mg 01/21/23 15:54 Diphenhydramine 50 Mg/Ml Vial IV Q10M PRN Pruritis Lactated Ringer's 1,000 mls @ 100 mls/hr 01/21/23 13:45 01/21/23 13:56 Lactated Ringers IV 100 mls/hr CONT JOSESITO Administration Oxytocin/Lactated Ringer's 30 unit in 500 mls @ 200 mls/hr 01/21/23 13:41 Oxytocin Premix IV CONT PRN Bleeding Protocol Tranexamic Acid 1,000 mg/ 100 mls @ 200 mls/hr 01/21/23 13:41 Sodium Chloride IV NOW PRN Bleeding Oxytocin/Lactated Ringer's 30 unit in 500 mls @ 2 mls/hr 01/21/23 13:45 Oxytocin Premix IV TITRATE JOSESITO Protocol 2 MILLIUNIT/MIN Bupivacaine HCl 25 ml/ Sodium 100 mls @ 6 mls/hr 01/21/23 16:00 Chloride EPIDURAL CONT JOSESITO Lidocaine HCl 20 ml 01/21/23 13:41 Lidocaine 1% 20 Ml INJ INTRA-OP PRN Post Delivery Methylergonovine Maleate 0.2 mg 01/21/23 13:41 Methylergonovine 0.2 Mg Tablet PO Q6HR PRN Heavy Bleeding Methylergonovine Maleate 0.2 mg 01/21/23 13:41 Methylergonovine 0.2 Mg/Ml Vial IM NOW PRN Bleeding Nalbuphine HCl 2.5 mg 01/21/23 15:54 Nalbuphine 20 Mg/Ml Ampul IV Q10M PRN Pruritis Naloxone HCl 0.2 mg 01/21/23 13:41 Naloxone 0.4 Mg/Ml Vial IV Q2MIN PRN Opiate Reversal Ondansetron HCl 4 mg 01/21/23 13:41 Ondansetron 4 Mg/2 Ml Inj IV Q4HR PRN Nausea And Vomiting Oxytocin 10 unit 01/21/23 13:41 Oxytocin 10 Unit/Ml Vial IM NOW PRN Bleeding Allergies: Allergies Allergy/AdvReac Type Severity Reaction Status Date / Time No Known Allergies Allergy Uncoded 07/29/18 11:06 Procedure Insertion date: 01/21/23 Insertion time: 13:20 Prep/Local: 1% lidocaine (sterile drape, gloves, prep with Chloroprep) Interspace: L4-5 Patient position: sitting Needle: 18 gauge Hustead Loss of resistance with: saline SYLWIA at (cm): 4 Catheter placed at SKIN (cm): 9 Catheter in SPACE (cm): 5 Sensory level: T10 Insertion: No CSF, No Blood, No Paresthesia with insertion, No Paresthesia with injection and No Test dose reaction Initial Medications TEST DOSE time: :23 TEST DOSE: 1.5% lidocaine with epinephrine 1:200k (mL): 5 BOLUS DOSE time: 13:24 BOLUS DOSE (mL): 5 BOLUS DOSE med: other (2% Lidocaine) Infusion INFUSION: 0.125% bupivacaine and with fentanyl 2 mcg/mL Initial rate (mL/hr): 10 Post-procedure Anesthesia time START: 13:20 Anesthesia time END: 21:43 Post-procedure Anesthesia Assessment: Yes CV function: HR/BP stable, Yes Resp function: RR/sat/airway adequate, Yes Post-op hydration adequate, Yes Pain control adequate, Yes Nausea & vomiting absent, Yes Temperature > 36 C and Yes Mental status appropriate
--- NOTE | 2023-01-21 20:22 | PM.OBPNLAB ---
Date/Time Date Patient Seen: 01/21/23 Time Patient Seen: 20:22 Pain Control Pain control: epidural Comments: Remains comfortable with PCEA. Feeling increasing pressure down low and in her rectum. VS: BP 110/69, HR 70bpm, T 36.4C Temporal Pelvic Exam Dilation (cm): 9 Effacement (%): 90 station: -1 Amniotic membrane status: Leaking (clear) Comments: head position previously ROP, now rotated to OANH though likely deflexed. Contractions Contraction frequency (min): 3 Contraction pattern: Regular Contraction intensity: Mild Status status: Category l Heart Rate Baseline: 120 Monitor Accelerations: Present Monitor Decelerations: Absent Monitor Variability: Moderate Assessment and Plan Assessment: active labor Plan: continuous present management Comments: Anticipate second stage soon.
[2023-01-21] MEDS: FENT 2MCG/ML BUPIV 0.125% EPI 200 MCG/100 ML PLAST..BAG 6 MCG EPIDURAL (20:24)
[2023-01-21] MEDS: diphenhydrAMINE 50 MG/ML VIAL 25 MG IV (20:27)
--- NOTE | 2023-01-21 22:17 | PM.OBPRVD ---
Events: Previous and Labor Induction Labor & Delivery Delivery date: 01/21/23 Intrapartal Events: None Cervical ripening method: per [place] bulb protocol Induction method: AROM Delivery monitor: external FHT and external uterine Route of delivery: Episiotomy description: None L&D Laceration Description: None Quantitative Blood Loss: 175 Anesthesia Type: Epidural Narrative: Trial pushing initiated at 9.5cm/900%/-1 station with adequate progress made with CNM manually reducing anterior lip. Steady descent of vertex with coaching, encouragement and strong maternal efforts. Cat II FHR for variables with pushing throughout second stage. NSVB of a viable baby boy in OANH position, sommersaulted through a single loose nuchal cord. The shoulders delivered easily, without additional maneuvers. was placed on maternal abdomen for drying and stimulation with strong cry at 30 seconds of life. After cessation of pulsation, the cord was double clamped by CNM and cut by FOB. 30 units of pitocin in 500mL LR was started at 250mL/hr for AMTSL. Gentle cord traction and a single maternal push led to spontaneous, Schultze delivery of an apparently intact placenta, membranes and 3VC. Fundus immediately firm and bleeding minimal. QBL 175mL. Vagina and perineum inspected and intact. Both mother and baby stable and skin to skin as I left the room. Baby 1: gender: Male Presentation: vertex Position: Right Occiput Anterior Placenta delivery description: Spontaneous Cord Vessel Description: 3 Vessels, Nuchal Cord and Loose score (1 min): 6 score (5 min): 9 weight: 4.904 kg Plan for aftercare: Routine care
[2023-01-22 07:24] VITALS: TEMP 37.4
[2023-01-22] MEDS: ACETAMINOPHEN 325 MG TABLET 650 MG PO (07:24)
[2023-01-22] MEDS: LANOLIN OINT 7 GM 1 APPLIC TOP (07:24)
--- NOTE | 2023-01-22 15:04 | PM.OBDS.1 ---
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 Voiding, ambulating and independently. Tolerating a general diet. Minimal pain, not taking medication. Vaginal bleeding is light without clots. Feels good, just sore. Eager for discharge to home. Peripartum Data Delivery Method: Natural Vaginal Laceration Description: None Episiotomy description: None Procedures: O80 complications: none Discharge Diagnosis (1) Encounter for full-term uncomplicated delivery: Status: Acute (2) History of section: Status: None Problem Details: 10/2008 with first Status at Discharge Cognitive/behavioral status at discharge: oriented and calm Functional status at discharge: independent ambulation Overall status at discharge: patient is progressing back to baseline Time Spent with Patient Time attestation: Total time spent providing and/or coordinating discharge services: Objective Labs 01/21/23 08:10 Exam Vital Signs (past 8 hours): - 01/22/23 07:24 Temperature 99.3 F BP 113/68, HR 77, T 99.0 F Temporal Other: Fundus firm @ u-1, lochia scant, no clots. Discharge Plan Discharge Plan Patient Disposition: Home Discharge orders & Medications Prescriptions: Continued vit-iron fum-folic ac [Mynatal] 1 EACH capsule 1 cap PO QDAY Qty: 0 hydrocortisone 2.5 % lotion 1 delgado TP BID Qty: 118 1RF Follow up/Referrals: Di Black CNM [Advanced Service Control Operator] - (2 week follow-up in office 02/05/2023 6 week follow-up in office 03/03/2023) Lin Drummond ARNP [Primary Care Provider] - Diet/Activity/Treatments Diet: Diet as Tolerated and Regular Activity: bed rest x 2 weeks, pelvic rest x 6 weeks Skin/Wound/Dressing Care Report to your healthcare provider any signs of infection, such as:: chills, fever, increased pain, unusual drainage and unusual redness Visit Report/Discharge Packet Instructions: DI for Depression Stand Alone Forms: Patient Portal/API, Stroke Signs & Symptoms Discharge Data Primary Care Provider: Lin Drummond
[2023-01-22 16:12] VITALS: BP 113/68; PULSE 79; RESP 16; TEMP 37.3
== END 2023-01-22 17:13 | disposition home or self-care (01) | DRG 807 ==
PROVIDERS: Admitting Provider Nurse Practitioner Obstetrics & Gynecology; PCP Nurse Practitioner Family; Referring Provider Nurse Practitioner Obstetrics & Gynecology; Visit Provider Nurse Practitioner Obstetrics & Gynecology
DX: O99.824 Streptococcus B carrier state complicating childbirth (principal); Z37.0 Single live birth; Z3A.40 40 weeks gestation of pregnancy; O76 Abnormality in fetal heart rate and rhythm complicating labor and delivery
CPT/HCPCS: 36415; 59050; 85025; 86850; 86900; 86901; G0379; J1200

== ENCOUNTER → 2024-02-23 08:29 | Outpatient (CLI) | payer OTHER, SELFPAY ==
--- NOTE | 2024-02-23 | DI.US.S_ITS ---
LIMITED ULTRASOUND OF LEFT BREAST: 02/23/2024 CLINICAL: Focal left breast pain. No prior exams were available for comparison. Real-time ultrasound of the left breast 7-9 o'clock region was performed. Capone scale images of the real-time examination were reviewed. No significant abnormalities were seen sonographically in the left breast. Specifically, no finding to explain the patient's focal left breast pain. IMPRESSION: INCOMPLETE: NEED ADDITIONAL IMAGING EVALUATION There is no sonographic correlate to the patient's pain. Bilateral diagnostic mammogram for focal left pain is recommended to exclude architetural distortion This was performed immediately following this exam. This exam was interpreted at Station ID: [id number]. Electronically Signed By: Bárbara cole/:02/23/2024 09:15:48 letter sent: Additional Imaging Needed ACR BI-RADS Category 0: Incomplete: Need Additional Imaging Evaluation
--- NOTE | 2024-02-23 | DI.MG.S_ITS ---
BILATERAL DIGITAL DIAGNOSTIC MAMMOGRAM 3D/2D: 02/23/2024 CLINICAL: Baseline. Left breast pain. Comparison is made to exam dated: 02/23/2024 [facility]. The breasts are extremely dense, which lowers the sensitivity of mammography (category d />75% glandular tissue). No significant masses, calcifications, or other findings are seen in either breast. Specifically, no finding to explain the focal left breast pain. patient's pain. IMPRESSION: NEGATIVE BIlateral mammograms are normal. No finding to explain focal left breast pain. Clinical follow up is recommended for symptoms as needed. There is no mammographic evidence of malignancy. A 3 year screening mammogram is recommended. Findings and recommendations were conveyed to the patient at time of exam. Based on the Tyrer Cuzick model (a risk assessment model) the patient's lifetime risk is 10.4% and her 10 year risk is 1.0%. According to the ACR, ACS, and NCCN guidelines, an annual breast MRI exam along with mammogram is recommended if the patient's lifetime risk is 20% or greater. This exam was interpreted at Station ID: [id number]. NOTE: For mammograms, a report in lay terms will be sent to the patient. Approximately 15% of breast malignancies will not be visualized mammographically. In the management of a palpable breast mass, a negative mammogram must not discourage biopsy of a clinically suspicious lesion. Electronically Signed By: Bárbara cole/:02/23/2024 09:35:15 letter sent: Normal Exam ACR BI-RADS Category 1: Negative
== END ==
PROVIDERS: PCP Nurse Practitioner Family; Referring Provider Nurse Practitioner Family; Visit Provider Nurse Practitioner Family
DX: N64.4 Mastodynia (principal); R92.343 Mammographic extreme density, bilateral breasts
CPT/HCPCS: 76642; 77066; G0279

== ENCOUNTER 2024-11-09 15:21 | Emergency (ER) | payer OTHER, SELFPAY ==
[2024-11-09 15:47] VITALS: BP 122/59; PULSE 94; RESP 20; TEMP 37.1; O2SAT 99; BMI 26.1
--- NOTE | 2024-11-09 16:52 | DI.RAD.S_ITS ---
PROCEDURE: XR PELVIS 1-2V INDICATIONS: BL hp and low back stewart TECHNIQUE: Single view(s) of the pelvis acquired. COMPARISON: None. FINDINGS: Bones: No fractures or dislocations. No suspicious bony lesions. Soft tissues: Visualized bowel gas pattern is normal. No suspicious soft tissue calcifications. IMPRESSION: No acute bony abnormality. If symptoms persist with conservative management, consider cross-sectional imaging such as CT or MRI. Approved by: Estelita Kurtz M.D.,Ph.D. on 11/09/2024 at 17:26
--- NOTE | 2024-11-09 16:52 | DI.RAD.S_ITS ---
PROCEDURE: XR LUMBAR SPINE 2-3V INDICATIONS: BL hip and low back pain TECHNIQUE: 3 views of the lumbar spine were acquired. COMPARISON: None. FINDINGS: Bones: 5 [id number] vertebrae are present. There is normal bony alignment. No vertebral body compression fractures. No suspicious bony lesions. Soft tissues: Overlying bowel gas pattern is normal. No suspicious soft tissue calcifications. IMPRESSION: No acute bony abnormality. If symptoms persist with conservative management, consider cross-sectional imaging such as CT or MRI. Approved by: Estelita Kurtz M.D.,Ph.D. on 11/09/2024 at 17:26
--- NOTE | 2024-11-09 17:11 | ED_ITS ---
HPI - Back Pain/Injury <Rosalinda Nixon PA-C - Last Filed: 11/09/24 19:44> General Chief Complaint: Back Pain/Injury Stated Complaint: low back and hip pain Time Seen by Provider: 11/09/24 15:49 Source: patient History of Present Illness HPI Narrative: Ms. Clayton is a pleasant 39-year-old female with no significant past medical history who presents to the emergency department for low back pain and tingling in her hands and feet x 4 days. Patient states that she experienced similar low back pain in March/April of this year after heavy lifting. She had an outpatient x-ray that was negative and an outpatient MRI that was ordered however she never had the MRI as her symptoms went away after 5 days. On Friday after lifting her 40 lb child, she developed the same pain. Describes mid lumbar pain that radiates into both hips and down the sides of the legs. She also reports around the same time she developed a heavy sensation and tingling sensation of her hands and feet that comes and goes. Her pain is minimal when she is sitting still but the pain increases to a 7/10 with movement. She feels better when she is up and walking. She took a dose of ibuprofen on Friday otherwise has not tried any medications. She denies any bowel or bladder incontinence, weakness of the lower extremities, fevers, IV drug use, abdominal pain, dysuria, hematuria or concern. Related Data Home Medications ?Medication ?Instructions ?Recorded ?Confirmed vitamin-ferrous fumarate 1 cap PO QDAY ##0 65 mg iron-folic acid 1 mg capsule (Mynatal) Previous Rx's ?Medication ?Instructions ?Recorded hydrocortisone 2.5 % lotion 1 delgado TP BID #118 mL 04/01 methocarbamol 500 mg tablet 500 mg PO TID PRN muscle s pasm #15 11/09/24 tabs prednisone 20 mg tablet 40 mg (2 x 20 mg) PO DAILY 5 days 11/09/24 #10 tabs Allergies Allergy/AdvReac Type Severity Reaction Status Date / Time No Known Allergies Allergy Uncoded 07/29/18 11:06 Review of Systems <Rosalinda Nixon PA-C - Last Filed: 11/09/24 19:44> Review of Systems ROS Unobtainable: All systems reviewed & are unremarkable except as noted in HPI and below Patient History <Rosalinda Nixon PA-C - Last Filed: 11/09/24 19:44> Medical History History of Gestational hypertension Surgical History History of section (04/01/17) Family History Mother Age: 66 Hypertension Diabetes mellitus Exam <Rosalinda Nixon PA-C - Last Filed: 11/09/24 19:44> Narrative Exam Narrative: GENERAL: 39 year old patient appears stated age. Well-developed patient, in no acute distress. HEAD: Atraumatic. Normocephalic. NECK: Trachea midline. Cervical ROM intact. No midline cervical tenderness. CARDIOVASCULAR: Regular rate and rhythm. RESPIRATORY: ?Nonlabored respirations. ?Speaking in clear, full sentences. ?Clear to auscultation. Breath sounds equal bilaterally. No wheezes, rales, or rhonchi. ? GASTROINTESTINAL: Abdomen soft, non-tender, nondistended. EXTREMITIES: No edema or joint tenderness. 2+ PT pulses BL. BACK: Tenderness to palpation across the lumbar region and both the midline and the bilateral paraspinal muscle regions. No palpable deformities or crepitus. No bruising. Patient is able to stand and ambulate but with discomfort. NEURO: AOx3. ?Clear speech. ?Moves all 4 extremities appropriately. Sensation intact to light touch throughout the bilateral upper and lower extremities. 5/5 bilateral juvenile detention officer strength. 5/5 bilateral plantar and dorsiflexion strength, knee flexion-extension strength, hip flexion-extension strength. Ambulates with steady gait but with discomfort. SKIN: No rash or erythema of visible areas Initial Vital Signs Initial Vital Signs: Vital Signs Temperature 98.8 F 11/09/24 15:47 Pulse Rate 94 H 11/09/24 15:47 Respiratory Rate 20 11/09/24 15:47 Blood Pressure 122/59 L 11/09/24 15:47 Pulse Oximetry 99 11/09/24 15:47 Oxygen Delivery Method Room Air 11/09/24 15:47 <Adele Lee MD - Last Filed: 11/09/24 23:01> Initial Vital Signs Initial Vital Signs: Vital Signs Temperature 98.8 F 11/09/24 15:47 Pulse Rate 94 H 11/09/24 15:47 Respiratory Rate 20 11/09/24 15:47 Blood Pressure 122/59 L 11/09/24 15:47 Pulse Oximetry 99 11/09/24 15:47 Oxygen Delivery Method Room Air 11/09/24 15:47 Course <Rosalinda Nixon PA-C - Last Filed: 11/09/24 19:44> Orders Ordered: ED Orders 11/09/24 16:52 XR lumbar spine 2-3V Stat XR pelvis 1-2V Stat 11/09/24 17:40 Test Urine Stat Urinalysis and Microscopic Stat 11/09/24 17:45 CBC Auto Diff [Complete Blood Count AUTO DIFF] Stat CK [Creatine Kinase] Stat CMP [Comprehensive Metabolic Panel] Stat Vitamin B12 Stat Discontinued Medications Acetaminophen (Acetaminophen 325 Mg Tablet) 975 mg PO NOW ONE Stop: 11/09/24 17:24 Last Admin: 11/09/24 18:07 Dose: 975 mg Documented By: BARTOLO Sodium Chloride (Normal Saline 0.9%) 1,000 mls @ 1,000 mls/hr IV BOLUS ONE Stop: 11/09/24 18:22 Last Infusion: 11/09/24 19:17 Dose: Infused Documented By: Infusion: 11/09/24 18:53 Dose: 0 mls/hr Documented By: Admin: 11/09/24 18:07 Dose: 1,000 mls/hr Documented By: BARTOLO Ketorolac Tromethamine (Ketorolac 30 Mg/Ml Vial) 15 mg IV NOW ONE Stop: 11/09/24 17:24 Last Admin: 11/09/24 18:06 Dose: 15 mg Documented By: BARTOLO Lidocaine (Lidocaine 5% Patch) 1 each TOP NOW ONE Stop: 11/09/24 17:24 Last Admin: 11/09/24 18:07 Dose: 1 each Documented By: BARTOLO Prednisone (Prednisone 20 Mg Tablet) 40 mg PO NOW ONE Stop: 11/09/24 17:24 Last Admin: 11/09/24 18:07 Dose: 40 mg Documented By: BARTOLO Vital Signs Vital signs: Vital Signs - 8 hr 11/09/24 15:47 11/09/24 19:26 Temperature 98.8 F Pulse Rate 94 H 89 Respiratory Rate 20 20 Blood Pressure 122/59 L 118/58 L Pulse Oximetry 99 100 Oxygen Delivery Method Room Air Room Air <Adele Lee MD - Last Filed: 11/09/24 23:01> Orders Ordered: ED Orders 11/09/24 16:52 XR lumbar spine 2-3V Stat XR pelvis 1-2V Stat 11/09/24 17:40 Test Urine Stat Urinalysis and Microscopic Stat 11/09/24 17:45 CBC Auto Diff [Complete Blood Count AUTO DIFF] Stat CK [Creatine Kinase] Stat CMP [Comprehensive Metabolic Panel] Stat Vitamin B12 Stat Discontinued Medications Acetaminophen (Acetaminophen 325 Mg Tablet) 975 mg PO NOW ONE Stop: 11/09/24 17:24 Last Admin: 11/09/24 18:07 Dose: 975 mg Documented By: BARTOLO Sodium Chloride (Normal Saline 0.9%) 1,000 mls @ 1,000 mls/hr IV BOLUS ONE Stop: 11/09/24 18:22 Last Infusion: 11/09/24 19:17 Dose: Infused Documented By: Infusion: 11/09/24 18:53 Dose: 0 mls/hr Documented By: Admin: 11/09/24 18:07 Dose: 1,000 mls/hr Documented By: BARTOLO Ketorolac Tromethamine (Ketorolac 30 Mg/Ml Vial) 15 mg IV NOW ONE Stop: 11/09/24 17:24 Last Admin: 11/09/24 18:06 Dose: 15 mg Documented By: BARTOLO Lidocaine (Lidocaine 5% Patch) 1 each TOP NOW ONE Stop: 11/09/24 17:24 Last Admin: 11/09/24 18:07 Dose: 1 each Documented By: BARTOLO Prednisone (Prednisone 20 Mg Tablet) 40 mg PO NOW ONE Stop: 11/09/24 17:24 Last Admin: 11/09/24 18:07 Dose: 40 mg Documented By: BARTOLO Vital Signs Vital signs: Vital Signs - 8 hr 11/09/24 15:47 11/09/24 19:26 Temperature 98.8 F Pulse Rate 94 H 89 Respiratory Rate 20 20 Blood Pressure 122/59 L 118/58 L Pulse Oximetry 99 100 Oxygen Delivery Method Room Air Room Air MDM - Back Pain/Injury <Rosalinda Nixon PA-C - Last Filed: 11/09/24 19:44> Medical Records Attestation: I reviewed the patient's medical records. Lab Data 11/09/24 17:45 11/09/24 17:45 Labs: Lab Results 11/09/24 11/09/24 Range/Units 17:40 17:45 WBC 6.6 (4.5-11.0) X10^3/uL RBC 4.51 (4.0-5.2) X10^6/uL Hgb 12.8 (12.0-16.0) g/dL Hct 38.3 (36-46) % MCV 85.0 (80-100) fL MCH 28.4 (26-34) PG MCHC 33.4 (30-36) % RDW 13.9 (11.6-14.8) % Plt Count 283 (150-400) X10^3/uL Neut % (Auto) 62.7 (50-75) % Lymph % (Auto) 28.7 (25-40) % [place] % (Auto) 6.8 (3-14) % Eos % (Auto) 1.2 L (2-4) % Baso % (Auto) 0.6 (0-2) % Neut # (Auto) 4100 (0844-4373) /uL Lymph # (Auto) 1900 (7224-5193) /uL [place] # (Auto) 400 (0-900) /uL Eos # (Auto) 100 (0-450) /uL Baso # (Auto) 0 (0-100) /uL Sodium 138 (137-145) mmol/L Potassium 3.9 (3.4-5.1) mmol/L Chloride 103 (98-107) mmol/L Carbon Dioxide 26 (22-32) mmol/L BUN 13 (7-17) mg/dL Creatinine 0.60 (0.52-1.04) mg/dL Estimated GFR > 60 (>60) mL/min BUN/Creatinine Ratio 21.7 (6-22) Glucose 145 H (70-99) mg/dL Calcium 9.5 (8.4-10.2) mg/dL Total Bilirubin 0.5 (0.2-1.3) mg/dL AST 23 (14-36) IU/L ALT 16 (<35) IU/L Alkaline Phosphatase 81 (38-126) U/L Total Creatine Kinase 45 (30-135) U/L Total Protein 7.6 (6.3-8.2) g/dL Albumin 4.7 (3.5-5.0) g/dL Globulin 2.9 (1.7-4.1) g/dL Albumin/Globulin Ratio 1.6 (1.0-2.8) Vitamin B12 646 (239-931) pg/mL Urine Color Yellow Urine Appearance Clear Urine pH 6.0 (4.5-8.0) Ur Specific [place] <=1.005 (1.000-1.035) Urine Protein Negative (Negative) Urine Glucose (UA) Negative (Negative) g/dL Urine Ketones Negative (NEGATIVE) Urine Occult Blood Negative (Negative) Urine Nitrate Negative (Negative) Urine Bilirubin Negative (NEGATIVE) Urine Urobilinogen 0.2 (0.2) E.U./dL Ur Leukocyte Esterase Negative (NEGATIVE) Urine RBC 0-1/hpf (0-5/HPF) Urine WBC 0-1/hpf (0-5/HPF) Ur Squamous Epith Cells 0-1 /hpf (0-5/HPF) Urine Bacteria Occasional (0-1) (None) Ur Culture Indicated? Cult not indicated Vol Urine Centrifuged 10ml (spun) Urine Test Negative (Negative) Imaging Data Lumbar XR: Radiologist's Impression: PROCEDURE: XR LUMBAR SPINE 2-3V INDICATIONS: BL hip and low back pain TECHNIQUE: 3 views of the lumbar spine were acquired. COMPARISON: None. FINDINGS: Bones: 5 [id number] vertebrae are present. There is normal bony alignment. No vertebral body compression fractures. No suspicious bony lesions. Soft tissues: Overlying bowel gas pattern is normal. No suspicious soft tissue calcifications. IMPRESSION: No acute bony abnormality. If symptoms persist with conservative management, consider cross-sectional imaging such as CT or MRI. Approved by: Estelita Kurtz M.D.,Ph.D. on 11/09/2024 at 17:26 Pelvis XR: Radiologist's Impression: PROCEDURE: XR PELVIS 1-2V INDICATIONS: BL hp and low back stewart TECHNIQUE: Single view(s) of the pelvis acquired. COMPARISON: None. FINDINGS: Bones: No fractures or dislocations. No suspicious bony lesions. Soft tissues: Visualized bowel gas pattern is normal. No suspicious soft tissue calcifications. IMPRESSION: No acute bony abnormality. If symptoms persist with conservative management, consider cross-sectional imaging such as CT or MRI. Approved by: Estelita Kurtz M.D.,Ph.D. on 11/09/2024 at 17:26 [facility] Narrative Medical decision making narrative: 39-year-old female with no significant past medical history who presents to the emergency department for low back pain and tingling in her hands and feet x 4 days. Differential diagnosis includes but is not limited to lumbar strain, herniated disc, bulging disc, slipped disc with spinal stenosis, arthritis, compression fracture, UTI, lumbar radiculopathy, etc. On exam patient is in no acute distress, nontoxic appearing, vital signs appropriate, lower extremities neurovascularly intact, she is ambulatory, no bowel or bladder dysfunction, no direct trauma to the back with bruising or wounds. She does have pain with movement and tenderness across the lower lumbar spine region. Also reports tingling sensation in hands and feet however no decreased sensation or strength on exam. Given midline tenderness on exam and concern of bilateral hip pain we will obtain x-ray imaging of pelvis and x-ray to rule out any baseline bony abnormalities, we will obtain CBC, CMP, vitamin B12, urinalysis if an history of neuropathy type symptoms. We will treat patient with fluids, Toradol, Lidoderm, prednisone. X-ray pelvis and lumbar spine does not reveal any acute bony abnormality. Patient's pain is not significantly improved after ED treatment however she does decline any additional pain medication she does not want anything that will make her drowsy, as use opioids in the past with negative side effects. Labs overall reassuring with normal electrolytes, normal WBC count 6.6, glucose is slightly elevated 145 however patient recently 8. Vitamin B12 is within normal range at 646. Discussed the importance of follow up with PCP for outpatient advanced imaging if needed, physical therapy. Recommended patient use ibuprofen, Tylenol, warm compress, gentle stretching, prescribed prednisone for 5 days for radiculopathy and also muscle relaxer to use if needed. Discussed risks and muscle relaxers. Discussed ED return precautions. Patient verbalized understanding of all information happy with the plan, ambulatory in stable for discharge home. <Adele Lee MD - Last Filed: 11/09/24 23:01> Lab Data Labs: Lab Results 11/09/24 11/09/24 Range/Units 17:40 17:45 WBC 6.6 (4.5-11.0) X10^3/uL RBC 4.51 (4.0-5.2) X10^6/uL Hgb 12.8 (12.0-16.0) g/dL Hct 38.3 (36-46) % MCV 85.0 (80-100) fL MCH 28.4 (26-34) PG MCHC 33.4 (30-36) % RDW 13.9 (11.6-14.8) % Plt Count 283 (150-400) X10^3/uL Neut % (Auto) 62.7 (50-75) % Lymph % (Auto) 28.7 (25-40) % [place] % (Auto) 6.8 (3-14) % Eos % (Auto) 1.2 L (2-4) % Baso % (Auto) 0.6 (0-2) % Neut # (Auto) 4100 (4702-2511) /uL Lymph # (Auto) 1900 (9941-1041) /uL [place] # (Auto) 400 (0-900) /uL Eos # (Auto) 100 (0-450) /uL Baso # (Auto) 0 (0-100) /uL Sodium 138 (137-145) mmol/L Potassium 3.9 (3.4-5.1) mmol/L Chloride 103 (98-107) mmol/L Carbon Dioxide 26 (22-32) mmol/L BUN 13 (7-17) mg/dL Creatinine 0.60 (0.52-1.04) mg/dL Estimated GFR > 60 (>60) mL/min BUN/Creatinine Ratio 21.7 (6-22) Glucose 145 H (70-99) mg/dL Calcium 9.5 (8.4-10.2) mg/dL Total Bilirubin 0.5 (0.2-1.3) mg/dL AST 23 (14-36) IU/L ALT 16 (<35) IU/L Alkaline Phosphatase 81 (38-126) U/L Total Creatine Kinase 45 (30-135) U/L Total Protein 7.6 (6.3-8.2) g/dL Albumin 4.7 (3.5-5.0) g/dL Globulin 2.9 (1.7-4.1) g/dL Albumin/Globulin Ratio 1.6 (1.0-2.8) Vitamin B12 646 (239-931) pg/mL Urine Color Yellow Urine Appearance Clear Urine pH 6.0 (4.5-8.0) Ur Specific [place] <=1.005 (1.000-1.035) Urine Protein Negative (Negative) Urine Glucose (UA) Negative (Negative) g/dL Urine Ketones Negative (NEGATIVE) Urine Occult Blood Negative (Negative) Urine Nitrate Negative (Negative) Urine Bilirubin Negative (NEGATIVE) Urine Urobilinogen 0.2 (0.2) E.U./dL Ur Leukocyte Esterase Negative (NEGATIVE) Urine RBC 0-1/hpf (0-5/HPF) Urine WBC 0-1/hpf (0-5/HPF) Ur Squamous Epith Cells 0-1 /hpf (0-5/HPF) Urine Bacteria Occasional (0-1) (None) Ur Culture Indicated? Cult not indicated Vol Urine Centrifuged 10ml (spun) Urine Test Negative (Negative) Discharge Plan Departure Patient Disposition: Home Clinical Impression: Bilateral lumbar radiculopathy Instructions: DI for Lumbar Radiculopathy Activity Restrictions/Additional Instructions: Dear Lelia Forrest, Thank you for coming to the emergency department. Today you were evaluated for low back pain in addition to tingling in her hands and feet. We obtain x-ray imaging of your pelvis and low back which did not reveal any bone abnormalities. We obtain baseline labs which were overall reassuring however as we discussed a vitamin B12 level is still pending and we will need to be followed up with your primary care doctor. You have been prescribed a muscle relaxer, methocarbamol in addition to a steroid, prednisone. Please complete the full 5 day course of steroid. Please use the muscle relaxer as needed however please be aware that it can make you drowsy. You may take 2 muscle relaxer pills (1,000mg) at night. Please use ibuprofen and Tylenol in addition as gentle stretching and heat therapy. Please take Ibuprofen (Motrin/Advil) or Acetaminophen (Tylenol) for pain. These are available over the counter. You may take Ibuprofen 600 mg every 8 hours with food for pain. You may also take Acetaminophen 650 mg every 4-6 hours for pain. Do not exceed 3000 mg of Tylenol a day as this can cause liver damage. Do not drink alcohol with either of these medications. Return to the emergency department if you develop any bowel or bladder dysfunction, fevers, inability to walk or other concerns. Please follow up with your primary care doctor within the next 2-3 days for ER follow-up. (If you do not have a PCP you can call [phone]. ?to schedule an appointment with an [facility] Primary Care Provider) IF YOU DEVELOP ANY NEW OR WORSENING SYMPTOMS, RETURN TO THE ER! Please read the attached instructions, they highlight more specific treatments and interventions for you at home. Thank you for letting me participate in your care, Rosalinda Nixon PA-C Prescriptions: New prednisone 20 mg tablet 40 mg PO DAILY 5 Days Qty: 10 0RF methocarbamol 500 mg tablet 500 mg PO TID PRN (Reason: muscle spasm) Qty: 15 0RF No Action Mynatal 1 EACH capsule 1 cap PO QDAY Qty: 0 hydrocortisone 2.5 % lotion 1 delgado TP BID Qty: 118 1RF Referrals: Lin Drummond ARNP [Primary Care Provider, Family Practice] Stand Alone Forms: Patient Portal/API ED Sign-out <Adele Lee MD - Last Filed: 11/09/24 23:01> [facility] I was immediately available in the department for consultation throughout this patient's visit. Adele Lee MD
[2024-11-09] MEDS: KETOROLAC 30 MG/ML VIAL 15 MG IV (18:06)
[2024-11-09] MEDS: LIDOCAINE 5% PATCH 1 EACH TOP (18:07)
[2024-11-09] MEDS: ACETAMINOPHEN 325 MG TABLET 975 MG PO (18:07)
[2024-11-09] MEDS: SODIUM CHLORIDE 0.9% 1,000 ML 1000 ML IV (18:07)
[2024-11-09 18:09] LABS: Add Manual Diff / Slide Review NO; Hematocrit 38.3 % (36-46); Hemoglobin 12.8 g/dL (12.0-16.0); Lymphocytes Absolute Auto 1900 /uL (1100-4500); Mean Corpuscular HGB Conc 33.4 % (30-36); Mean Corpuscular Hemoglobin 28.4 PG (26-34); Mean Corpuscular Volume 85.0 fL (80-100); Platelet Count 283 X10^3/uL (150-400)
[2024-11-09 18:24] LABS: Alanine Aminotransferase 16 IU/L (<35); Albumin 4.7 g/dL (3.5-5.0); Albumin Globulin Ratio 1.6 (1.0-2.8); Alkaline Phosphatase 81 U/L (38-126); Blood Urea Nitrogen 13 mg/dL (7-17); Calcium 9.5 mg/dL (8.4-10.2); Carbon Dioxide 26 mmol/L (22-32); Chloride 103 mmol/L (98-107); Creatine Kinase 45 U/L (30-135); Estimated Glomerular Filt Rate > 60 mL/min (>60); Globulin 2.9 g/dL (1.7-4.1); Glucose 145 mg/dL (70-99); HEMOLYSIS < 15 (0-50); Potassium 3.9 mmol/L (3.4-5.1); Sodium 138 mmol/L (137-145); Total Protein 7.6 g/dL (6.3-8.2)
[2024-11-09 18:35] LABS: Appearance Urine UA CLEAR; Bilirubin Urine UA NEGATIVE (NEGATIVE); Color Urine UA YELLOW; Glucose Urine UA NEGATIVE (Negative); Ketones Urine UA NEGATIVE (NEGATIVE); Leukocyte Esterase Urine UA NEGATIVE (NEGATIVE); Nitrite Urine UA NEGATIVE (Negative); Occult Blood Urine UA NEGATIVE (Negative); Protein Urine UA NEGATIVE (Negative); Specific Gravity Urine UA <=1.005 (1.000-1.035); Urobilinogen Urine UA 0.2 E.U./dL (0.2)
[2024-11-09 18:36] LABS: pH Urine UA 6.0 (4.5-8.0)
[2024-11-09 18:43] LABS: Culture Indicated Urine Cult Not Indicated
[2024-11-09 19:15] LABS: Vitamin B12 646 pg/mL (239-931)
[2024-11-09 19:26] VITALS: BP 118/58; PULSE 89; RESP 20; O2SAT 100
== END 2024-11-09 19:30 | disposition home or self-care (01) ==
PROVIDERS: Emergency Provider Physician Assistant; PCP Nurse Practitioner Family
DX: M54.16 Radiculopathy, lumbar region (principal)
CPT/HCPCS: 72100; 72170; 80053; 81001; 81025; 82550; 82607; 85025; 96361; 96374; 99284; J1885

== ENCOUNTER → 2024-12-06 17:13 | Outpatient (CLI) | payer OTHER, SELFPAY ==
--- NOTE | 2024-12-06 17:14 | DI.MRI.S_ITS ---
PROCEDURE: MR LUMBAR SPINE WO CON INDICATIONS: low back pain TECHNIQUE: Noncontrast sagittal T1 spin echo and T2 fast echo, sagittal STIR, and T2 fast spin echo through the lumbar spine. In cases with scoliosis, additional coronal T2 fast spin echo may be performed. COMPARISON: None. FINDINGS: Image quality: Excellent. Alignment and Curvature: Straightening of the normal lumbar lordosis. Bone Marrow: Marrow is of normal overall signal. No acute vertebral body compression fractures. Spinal Cord: Conus medullaris terminates at the L1 level. Visualized cord demonstrates normal signal and size. Paraspinous Soft Tissues: No paravertebral masses. T12-L1: Small left paracentral disc protrusion. No central canal or neural foraminal stenosis. L1-L2: Normal appearance. L2-L3: Normal appearance. L3-L4: Mild facet arthropathy. No central canal or neural foraminal stenosis. L4-L5: Disc desiccation and mild diffuse disc bulge with small superimposed central disc extrusion extending inferiorly. Posterior annular tear mild central canal stenosis. Facet arthropathy. No neural foraminal stenosis. L5-S1: Normal appearance. IMPRESSION: Mild degenerative changes of the lumbar spine as described above. No significant central canal or neural foraminal stenosis. Dictated by: Justin Vick M.D. on 12/07/2024 at 0:11 Approved by: Justin Vick M.D. on 12/07/2024 at 0:13
== END ==
LOC: MRI 17:14
PROVIDERS: PCP Nurse Practitioner Family; Referring Provider Nurse Practitioner Family; Visit Provider Nurse Practitioner Family
DX: M47.26 Other spondylosis with radiculopathy, lumbar region (principal); M51.16 Intervertebral disc disorders with radiculopathy, lumbar region; M48.061 Spinal stenosis, lumbar region without neurogenic claudication
CPT/HCPCS: 72148